=== PATIENT | female | born 1995 | race Caucasian/White ===

== ENCOUNTER → 2022-11-14 17:21 | Outpatient (BNVA) | payer OTHER, MEDICAID, SELFPAY | PROVIDERS: Family Provider Pediatrics; Visit Provider Nurse Practitioner Family | DX: Z12.4 Encounter for screening for malignant neoplasm of cervix (principal) | CPT/HCPCS: 88175 ==

== ENCOUNTER → 2022-12-14 14:44 | Outpatient (BNVA) | payer OTHER, MEDICAID, SELFPAY | PROVIDERS: Family Provider Pediatrics; Visit Provider Nurse Practitioner Family | DX: N92.6 Irregular menstruation, unspecified (principal); N63.10 Unspecified lump in the right breast, unspecified quadrant | CPT/HCPCS: 81025 ==

== ENCOUNTER 2022-12-26 09:38 | Outpatient (CLI) | payer OTHER, MEDICAID, SELFPAY ==
--- NOTE | 2022-12-26 09:48 | US_ITS ---
WS: [id number] Right breast ultrasound, 12/26/2022 Clinical Data: LUMP IN RT BREAST Comparison: None. Findings: The right breast was examined in the upper outer quadrant. Only normal breast tissue could be seen. T here were no cysts or masses. US/US breast RT limited* [id number] Impression: Negative right breast ultrasound Recommend clinical follow-up BIRADS: 1-Negative FOLLOW UP: See Report
== END 2022-12-26 09:39 | disposition home or self-care (01) ==
LOC: RAD 09:42
PROVIDERS: Family Provider Pediatrics; Visit Provider Nurse Practitioner Family
DX: N63.10 Unspecified lump in the right breast, unspecified quadrant (principal)
CPT/HCPCS: 76642

== ENCOUNTER → 2023-02-16 16:08 | Outpatient (BNVA) | payer OTHER, MEDICAID, SELFPAY | PROVIDERS: Family Provider Pediatrics; PCP Nurse Practitioner Family; Visit Provider Nurse Practitioner Family | DX: Z02.83 Encounter for blood-alcohol and blood-drug test (principal) | CPT/HCPCS: 80307 ==

== ENCOUNTER → 2023-05-10 15:39 | Outpatient (BNVA) | payer MEDICAID, SELFPAY | PROVIDERS: Family Provider Pediatrics; PCP Nurse Practitioner Family; Visit Provider Nurse Practitioner Family | DX: Z02.83 Encounter for blood-alcohol and blood-drug test (principal); F41.8 Other specified anxiety disorders; N92.6 Irregular menstruation, unspecified | CPT/HCPCS: 80307 ==

== ENCOUNTER → 2023-05-31 15:20 | Outpatient (BNVA) | payer MEDICAID, SELFPAY | PROVIDERS: Family Provider Pediatrics; PCP Nurse Practitioner Family; Visit Provider Nurse Practitioner Family | DX: N92.6 Irregular menstruation, unspecified (principal); Z02.83 Encounter for blood-alcohol and blood-drug test | CPT/HCPCS: 80307; 81025; 84702 ==

== ENCOUNTER → 2023-06-05 15:03 | Outpatient (BNVA) | payer MEDICAID, SELFPAY | PROVIDERS: Family Provider Pediatrics; PCP Nurse Practitioner Family; Visit Provider Nurse Practitioner Family | DX: Z02.83 Encounter for blood-alcohol and blood-drug test (principal) | CPT/HCPCS: 80307 ==

== ENCOUNTER → 2023-06-29 10:42 | Outpatient (BNVA) | payer MEDICAID, SELFPAY | PROVIDERS: Family Provider Pediatrics; PCP Nurse Practitioner Family; Visit Provider Nurse Practitioner Family | DX: Z02.83 Encounter for blood-alcohol and blood-drug test (principal) | CPT/HCPCS: 80307 ==

== ENCOUNTER → 2023-11-21 08:10 | Outpatient (BNVA) | payer MEDICAID, SELFPAY | PROVIDERS: Family Provider Pediatrics; PCP Nurse Practitioner Family; Visit Provider Nurse Practitioner Women's Health | DX: Z34.90 Encounter for supervision of normal pregnancy, unspecified, unspecified trimester (principal) | CPT/HCPCS: 80307; 84315; 84439; 84443; 84481; 84702; 85025; 86592; 86762; 86803; 86850; 86900; 87086; 87340; 87491; 87591; 87806 ==

== ENCOUNTER → 2023-11-27 10:10 | Outpatient (BNVA) | payer MEDICAID, SELFPAY | PROVIDERS: Family Provider Pediatrics; PCP Nurse Practitioner Family; Visit Provider Obstetrics & Gynecology | DX: Z34.90 Encounter for supervision of normal pregnancy, unspecified, unspecified trimester (principal) | CPT/HCPCS: 76815 ==

== ENCOUNTER → 2023-12-05 08:07 | Outpatient (BNVA) | payer MEDICAID, SELFPAY | PROVIDERS: Family Provider Pediatrics; PCP Nurse Practitioner Family; Visit Provider Obstetrics & Gynecology | DX: Z3A.12 12 weeks gestation of pregnancy (principal) | CPT/HCPCS: 84315; 87491; 87591 ==

== ENCOUNTER → 2023-12-20 08:17 | Outpatient (BNVA) | payer MEDICAID, SELFPAY | PROVIDERS: Family Provider Pediatrics; PCP Nurse Practitioner Family; Visit Provider Nurse Practitioner Women's Health | DX: Z34.90 Encounter for supervision of normal pregnancy, unspecified, unspecified trimester | CPT/HCPCS: 82105; 84315; 87491; 87591 ==

== ENCOUNTER → 2024-01-18 09:10 | Outpatient (BNVA) | payer MEDICAID, SELFPAY | PROVIDERS: Family Provider Pediatrics; PCP Nurse Practitioner Family; Visit Provider Obstetrics & Gynecology | DX: Z34.92 Encounter for supervision of normal pregnancy, unspecified, second trimester (principal) | CPT/HCPCS: 76805 ==

== ENCOUNTER → 2024-02-20 12:39 | Outpatient (BNVA) | payer MEDICAID, SELFPAY | PROVIDERS: Family Provider Pediatrics; PCP Nurse Practitioner Family; Visit Provider Obstetrics & Gynecology | DX: Z34.82 Encounter for supervision of other normal pregnancy, second trimester (principal) | CPT/HCPCS: 76816 ==

== ENCOUNTER → 2024-03-05 08:05 | Outpatient (BNVA) | payer MEDICAID, SELFPAY | PROVIDERS: Family Provider Pediatrics; PCP Nurse Practitioner Family; Visit Provider Nurse Practitioner Women's Health | DX: Z34.90 Encounter for supervision of normal pregnancy, unspecified, unspecified trimester (principal); R82.90 Unspecified abnormal findings in urine | CPT/HCPCS: 82950; 84315; 85025; 87086; 87491; 87591 ==

== ENCOUNTER → 2024-05-07 08:12 | Outpatient (BNVA) | payer MEDICAID, SELFPAY | PROVIDERS: Family Provider Pediatrics; PCP Nurse Practitioner Family; Visit Provider Obstetrics & Gynecology | DX: Z34.90 Encounter for supervision of normal pregnancy, unspecified, unspecified trimester (principal) | CPT/HCPCS: 84315; 87081 ==

== ENCOUNTER 2024-05-22 11:44 | Outpatient (CLI) | payer MEDICAID, SELFPAY ==
[2024-05-22 11:57] VITALS: BP 109/78; PULSE 93
[2024-05-22 12:15] VITALS: BMI 30.3
== END 2024-05-22 12:37 | disposition home or self-care (01) ==
LOC: OPOB 11:50 → OBGYN 11:50
PROVIDERS: Family Provider Pediatrics; PCP Nurse Practitioner Family; Visit Provider Obstetrics & Gynecology
DX: O36.8190 Decreased fetal movements, unspecified trimester, not applicable or unspecified (principal); Z3A.00 Weeks of gestation of pregnancy not specified
CPT/HCPCS: 59025; 84315; 99211

== ENCOUNTER 2024-05-31 02:05 | Inpatient (IN) | payer MEDICAID, SELFPAY ==
[2024-05-30] VITALS (8 sets, daily range): BP systolic 99–126; BP diastolic 58–75; PULSE 68–85; TEMP 36; BMI 30.2
[2024-05-30 23:17] LABS: Basophils % 0.2 %; Eosinophils % 0.3 %; Hematocrit 30.8 % (36-47); Lymphocytes # 1.9 10^3/uL (0.8-4.8); Lymphocytes % 22.3 %; Mean Corpuscular HGB Conc 35.1 g/dL (30-55); Mean Corpuscular Hemoglobin 32.4 pg (27-33); Mean Corpuscular Volume 92.5 fl (85-98); Mean Platelet Volume 11.2 fL (7.4-10.4); Monocytes # 0.5 10^3/uL (0.2-0.9); Monocytes % 5.2 %; Neutrophils # 6.21 10^3/uL (1.8-7.7); Neutrophils % 71.7 %; Nucleated Red Blood Cells % 0 %; Platelet Count 241 10^3/cmm (157-399); Red Blood Count 3.33 10^6/uL (3.85-5.65); Red Cell Distribution Width 13.1 % (12.1-15.1); White Blood Count 8.67 10^3/uL (3.29-11.43)
[2024-05-30] MEDS: dextrose 5%-lactated ringers 1,000 ML 125 ML IV (23:46)
[2024-05-31] VITALS (53 sets, daily range): BP systolic 85–168; BP diastolic 48–93; PULSE 54–83; RESP 16; TEMP 36.5–36.7; O2SAT 86–100
[2024-05-31] MEDS: oxytocin 30 UNIT/500 ML BAG IV (00:29)
[2024-05-31] MEDS: acetaminophen 325 mg Tablet 650 MG PO (00:35)
[2024-05-31] MEDS: lactated ringers 1,000 ML 999 ML IV ×2 (01:02→03:05)
--- NOTE | 2024-05-31 02:10 | PM.OBGYHP ---
Providers/Chief Complaint Admitting Physician: Leonard Peters MD Primary BEHAVIORAL HEALTH TECHNICIAN: Leonard Peters MD Primary Care Provider: Adrianna Dodson NP Chief Complaint: IOL HPI BEHAVIORAL HEALTH TECHNICIAN History of Present Illness Alysha Reddy is a 28 year old female SA5 EDC June 02, 2024 At 39 w 4 d No complications Admitted for elective induction of labor Patient lives more than 2 hours ago and requested induction for fear of delivering outside of hospital No c/o + movements h/o x two Present Details : 8 Para: 2 Labs Rubella: Immune RPR: Negative GBS: Negative Medications/Allergies Home Medications Medication Instructions Recorded Confirmed Last Taken Type prenat.vits,mani,zvj-knka-ronsv 1 tab PO DAILY 12/14/22 05/30/24 1 Day Ago History ~05/29/24 sertraline 50 mg tablet See Rx Instructions .Route 02/20/24 05/30/24 1 Day Ago Rx .COMPLEX #30 tabs ~05/29/24 metoclopramide HCl 5 mg tablet 5 mg PO PRN 05/30/24 05/30/24 1 Month Ago History (Reglan) ~04/29/24 Allergies Allergy/AdvReac Type Severity Reaction Status Date / Time No Known Allergies Allergy Verified 05/28/24 10:05 PFSH BEHAVIORAL HEALTH TECHNICIAN PFSH: Family History Other Cancer Diabetes Hyperlipidemia Hypertension Social History Smoking and tobacco/nicotine status: current every day tobacco/nicotine user Alcohol intake: never Personal Safety: Do you feel safe at home: Yes Victim of physical abuse: No Victim of emotional abuse: No Victim of sexual abuse: No Would you like help information on resources?: No History History History 8 Term 2 0 Miscarriages/Ectopic 5 Living Children 2 Care DELICIA Calculator Estimated Delivery Date Method Current WG Current Estimate 06/02/24 LMP (Certain) 39w 5d Specific Issues/Plans SUPERVISION OF NAUSEA AND VOMITING DURING (resolved, has reglan on hand) ANXIETY AND DEPRESSION --taking zoloft daily ENCOUNTER FOR TUBAL LIGATION CONSULTATION Vitals/I&O/Wt Last Vital Signs Temp 96.8 F L 05/30/24 23:37 Pulse 68 05/31/24 07:36 BP 125/77 05/31/24 07:36 Pulse Ox 100 05/31/24 04:30 O2 Del Method Room Air 05/30/24 22:40 05/30/24 05/31/24 05/31/24 22:59 06:59 14:59 Intake Total 1184.767 / 1184.767 Balance 1184.767 / 1184.767 Weight last 48 hrs Weight 187 lb Physical Exam Narrative: Weight 188 lbs; 5?6? VS normal General comfortable, awake, alert Lungs: clear Cor: RRR FH 36 cm, cephalic Cervix: 2 cm / 50% / -2 / posterior Ext: no edema External monitor: heart tracing good variability, + accelerations Urinary Catheter Management: Joyner Latex Free: Cath Placed During This Visit: yes, but has since been removed by the nurse Reason for Continuing Indwelling Catheter: Decision to DC Catheter Urinary Catheter Date of Insertion: 05/31/24 Urinary Catheter Time of Insertion: 05:03 Date Urinary Catheter Removed: 05/31/24 Time Urinary Catheter Discontinued: 06:10 Data 05/30/24 22:52 Results Labs OB ([facility]): Obstetrics US 02/20/24 Blood Type O Positive 05/30/24 Antibody Screen Negative 05/30/24 Hct 30.8 % (36-47) L 05/30/24 Hgb 10.80 g/dL (11.27-16.99) L 05/30/24 Rho(D) Type Rh positive 05/30/24 Plt Count 241 10^3/cmm (157-399) 05/30/24 Hep Bs Antigen Non-reactive (Nonreactive) 11/21/23 Hepatitis C Antibody Non-reactive (Nonreactive) 11/21/23 Rubella IgG Antibody 141.5 IU/mL (0.0-10.0) H 11/21/23 RPR Nonreactive (Nonreactive) 11/21/23 HIV 1&2 Ab & HIV 1 Ag Non-reactive (Non-Reactiv) 11/21/23 TSH 0.75 uIU/mL (0.27-4.20) 11/21/23 Free T4 1.06 ng/dL (0.82-1.77) 11/21/23 C.trachomatis RNA (TMA) Not detected (NOT DETECTED) 03/05/24 N.gonorrhoeae RNA (TMA) Not detected (NOT DETECTED) 03/05/24 T. vaginalis Amp RNA Not detected (NOT DETECTED) 03/05/24 Chlamydia/GC Comment See note 03/05/24 Glucose 1 Hr 50 gm 83 mg/dL (85-140) L 03/05/24 Ser , Semi-Qnt 08599.00 mIU/mL 11/21/23 HCG, Qual Negative (Negative) 05/31/23 Urine Opiates Screen Negative ng/mL (Negative) 05/31/24 Ur Barbiturates Screen Negative ng/mL (Negative) 05/31/24 Ur Phencyclidine Scrn Negative ng/mL (Negative) 05/31/24 Ur Amphetamines Screen Negative ng/mL (Negative) 05/31/24 U Benzodiazepines Scrn Negative ng/mL (Negative) 05/31/24 Urine Cocaine Screen Negative ng/mL (Negative) 05/31/24 U Marijuana (THC) Screen Positive ng/mL (Negative) H 05/31/24 Micro Urine Specimen 03/05/24 Pap Smear Interpret See note 11/14/22 A&P Assessment and plan (1) : 39 w 4 d Admit for elective induction of labor Fetus reassuring Plan start Pitocin per protocol h/o x two Rh + Qualifiers: Weeks of gestation: 12 weeks Qualified Code(s): Z3A.12 - 12 weeks gestation of Attestations Medical Necessity Statement*: patient at 39 w 4 d, admitted for induction of labor Coding Level of Care Code Acute Code for Chg Fwd Diagnoses 12 weeks gestation of Z3A.12 Weeks of gestation: 12 weeks Time Spent (min) 30
[2024-05-31 03:14] LABS: Amphetamines Screen Urine Negative (Negative); Barbiturates Screen Urine Negative (Negative); Benzodiazepines Screen Urine Negative (Negative); Cocaine Screen Urine Negative (Negative); Opiate Screen Urine Negative (Negative); PCP Screen Urine Negative (Negative); THC Screen Urine Positive (Negative)
--- NOTE | 2024-05-31 03:44 | P.ANESASSM_ITS ---
Pre-Anesthetic Assessment Height/Weight: Height 1.68 m Weight 84.822 kg Temp Pulse BP Pulse Ox O2 Del Method 96.8 F L 80 139/67 86 L Room Air 05/30/24 23:37 05/31/24 03:53 05/31/24 03:51 05/31/24 03:53 05/30/24 22:40 Preop Diagnosis: labor pain epidural Familial anesthetic complications: none Was Beta Remy taken within 24 hours: N/A Was Clonidine taken within 24 hours: N/A Social Tobacco (.5-1 ppd) and No alcohol Exam alert and oriented x 3 Airway Submandibular: within normal limits Cervical ROM: within normal limits Mallampati: Class II Dentition: other (poor dentition, multiple rotten and broken) History/ROS No significant history except as noted Pulmonary Asthma Anesthetic Plan ASA status: 2 Anesthesia: Anesthesia Evaluation, General and Regional (specify below) Medications/Allergies Home Medications Medication Instructions Recorded Confirmed Last Taken Type prenat.vits,mani,vyw-zeur-xsdud 1 tab PO DAILY 12/14/22 05/30/24 1 Day Ago History ~05/29/24 sertraline 50 mg tablet See Rx Instructions .Route 02/20/24 05/30/24 1 Day Ago Rx .COMPLEX #30 tabs ~05/29/24 metoclopramide HCl 5 mg tablet 5 mg PO PRN 05/30/24 05/30/24 1 Month Ago History (Reglan) ~04/29/24 Allergies Allergy/AdvReac Type Severity Reaction Status Date / Time No Known Allergies Allergy Verified 05/28/24 10:05 Current Medications Generic Name Dose Route Start Last Admin Trade Name Debbie PRN Reason Stop Dose Admin Acetaminophen 650 mg 05/30/24 21:57 05/31/24 00:35 Acetaminophen 325 Mg Tablet PO 650 mg Q6H PRN Administration Mild pain or temp > 100.4 Lactated Ringer's 1,000 mls @ 999 mls/hr 05/30/24 21:57 05/31/24 02:05 Lactated Ringers IV Infused .Q1H1M PRN Infusion Per L&D Rescitation Protocol Dextrose/Lactated Ringer's 1,000 mls @ 125 mls/hr 05/30/24 22:00 05/31/24 02:05 Dextrose 5%-Lactated Ringers IV 125 mls/hr .Q8H MARSHA Infusion Oxytocin 30 unit in 500 mls @ 1 mls/hr 05/30/24 22:45 05/31/24 02:36 Pitocin IV 3 milliunit/min .Q24H MARSHA 3 mls/hr Titration Protocol 1 MILLIUNIT/MIN Lactated Ringer's 1,000 mls @ 999 mls/hr 05/31/24 02:54 05/31/24 03:05 Lactated Ringers IV 999 mls/hr .Q1H1M PRN Administration See label comments PFSH Anesthesia Family History Other Cancer Diabetes Hyperlipidemia Hypertension Social History Smoking and tobacco/nicotine status: current every day tobacco/nicotine user Alcohol intake: never Female Reproductive History : 8 Data Anesthesia 05/30/24 22:52 Short CBC 05/30/24 Range/Units 22:52 WBC 8.67 (3.29-11.43) 10^3/uL Hgb 10.80 L (11.27-16.99) g/dL Hct 30.8 L (36-47) % MCV 92.5 (85-98) fl Plt Count 241 (157-399) 10^3/cmm Neut % (Auto) 71.7 % Neut # (Auto) 6.21 (1.8-7.7) 10^3/uL Blood Bank 05/30/24 22:52 Blood Type O Positive Rho(D) Type Rh positive Antibody Screen Negative Cardiac Studies: 2 No Data to Display
[2024-05-31] MEDS: ROPivacaine syringe 100 MG/50 ML SYRINGE 10 MG EPIDURAL (03:54)
--- NOTE | 2024-05-31 03:54 | ANES.PROC ---
Anesthesia Procedures Procedure/Date: 05/31/24 Epidural: Time Out Performed: Yes Consents Signed: Procedure Consent Consent: from patient, risks and benefits reviewed and patient agrees to proceed Lumbar Level: L3-L4 Epidural position: sitting Epidural procedure: sterile prep of area, 1% lidocaine to numb the area, 18 g needle, negative for paresthesia passed, neg for paresthesia, test dose given, 1.5% xylocaine 1:200k epi, placed PCEA, no systemic response, sterile dressing applied, L.U.D. no apparent complications and 0.2% Ropiavacaine @ mls/hr (13) Additional Comments: RICKY at 5, negative aspiration. taped at 12 at skin.
--- NOTE | 2024-05-31 06:20 | PM.DELIVERY ---
Delivery Note: Date of delivery: May 31, 2024 Pre-delivery diagnoses: 39 w 4 d admitted for elective induction of labor Post-delivery diagnoses: 39 w 4 d admitted for elective induction of labor vaginal delivery Procedure: induction of labor vaginal delivery Op report anesthesia: None Delivering Physician: Leonard Peters MD Estimated blood loss (mL): 300 Findings: , vigorous male Cord gases and blood obtained Normal placenta and cord Cord with true knot No episiotomy / lacerations EBL: 300 cc Pre-Delivery Course: normal labor course Delivery: vaginal Post-Delivery Status: good History History History 8 Term 2 0 Miscarriages/Ectopic 5 Living Children 2 A&P Assessment and plan (1) Vaginal delivery: Coding Level of Care Code Acute Code for Chg Fwd Diagnoses Vaginal delivery O80 Time Spent (min) 60
[2024-05-31] MEDS: ibuprofen 800 mg tablet PO ×3 (10:17→20:15)
[2024-05-31] MEDS: lanolin oint 7 gm 1 APPLIC TOPICAL (10:17)
[2024-05-31] MEDS: benzocaine-menthol 78 gm Canister 1 SPRAY TOPICAL (10:17)
--- NOTE | 2024-05-31 12:00 | ANE.PACU2 ---
Inpatient post-anesthesia follow up: Airway intact: Yes Vital signs: Temperature 98.2 F Pulse Rate 74 Respiratory Rate 16 Blood Pressure 118/70 Pulse Oximetry 98 Oxygen Delivery Me thod Room Air Oxygen Flow Rate Fraction of Inspir ed Oxygen Hydration adequate: Yes Nausea and vomiting: No Pain level: 1 Mental status: Baseline Epidural Start/End: Epidural Start Date: 05/31/24 Epidural Start Time: 03:44 Epidural End Date: 05/31/24 Epidural End Time: 05:36
[2024-05-31] MEDS: docusate sodium 100 mg Capsule PO (19:13)
[2024-05-31 19:22] LABS: Hematocrit 29.9 % (36-47); Mean Corpuscular HGB Conc 33.8 g/dL (30-55); Mean Corpuscular Hemoglobin 31.9 pg (27-33); Mean Corpuscular Volume 94.3 fl (85-98); Mean Platelet Volume 11.6 fL (7.4-10.4); Platelet Count 210 10^3/cmm (157-399); Red Blood Count 3.17 10^6/uL (3.85-5.65); White Blood Count 9.55 10^3/uL (3.29-11.43)
[2024-06-01 04:45] VITALS: BP 113/57; PULSE 77; RESP 15; TEMP 36.5; O2SAT 98
--- NOTE | 2024-06-01 08:36 | PM.OBGYDC ---
Discharge Providers [employer] Date of Admission: 05/31/24 02:05 Date of Discharge: 06/01/24 Attending Provider at Admission: Leonard Peters MD Attending Provider at Discharge: Leonard Peters MD Primary Care Provider: Adrianna Dodson NP Diagnoses at Discharge Discharge Diagnosis (1) Vaginal delivery: Details from hospital stay: 28-year-old female G8, P3 delivered at 39.3 weeks gestation via of viable male . Patient is ambulating, tolerating a regular diet, voiding and caring for infant without nursing assistance. Patient denies headaches, blurred vision, chest pain or shortness of breath. Her pain has been relieved with ibuprofen. She denies any heavy bleeding or passage of clots. Patient's past medical history was reviewed including her depression, she states she has not recently had to take her medication she has been feeling very well. Discharge discussed with the patient to home with expectations and restrictions. Encourage no heavy lifting pushing pulling no sex douching or tampons x 6 weeks. Patient understands and states she is to see Dr. Peters in a few weeks for she desires future sterilization. She does not desire to proceed with tubal sterilization at this time. I discussed with patient to continue her vitamins that she has at home and to restart her depression medicine sertraline as prescribed. Status: Acute Reason for Visit Reason for Visit: IOL Hospital Course Hospital Course See above Information Peripartum Data: Infant Delivery Method: Vaginal Laceration description: None Physical Exam Narrative: 28-year-old female awake and alert and oriented. HENMT: COMMON NORMALS: normocephalic HEAD & SCALP: normocephalic Cardio: COMMON NORMALS: regular rate and regular rhythm RATE: regular rate RHYTHM: regular rhythm Back/Pelvis: OTHER: Abdomen?soft, fundus firm well below umbilicus. Lochia?light Extremity: COMMON NORMALS: no clubbing, cyanosis or edema Urinary Catheter Management: Joyner Latex Free: Cath Placed During This Visit: yes, but has since been removed by the nurse Reason for Continuing Indwelling Catheter: Decision to DC Catheter Urinary Catheter Date of Insertion: 05/31/24 Urinary Catheter Time of Insertion: 05:03 Date Urinary Catheter Removed: 05/31/24 Time Urinary Catheter Discontinued: 06:10 History History History 8 Term 2 0 Miscarriages/Ectopic 5 Living Children 2 Discharge Data Studies Completed and Pending Laboratory Results WBC 9.55 10^3/uL (3.29-11.43) 05/31/24 18:50 RBC 3.17 10^6/uL (3.85-5.65) L 05/31/24 18:50 Hgb 10.10 g/dL (11.27-16.99) L 05/31/24 18:50 Hct 29.9 % (36-47) L 05/31/24 18:50 MCV 94.3 fl (85-98) 05/31/24 18:50 MCH 31.9 pg (27-33) 05/31/24 18:50 MCHC 33.8 g/dL (30-55) 05/31/24 18:50 RDW 13.0 % (12.1-15.1) 05/31/24 18:50 Plt Count 210 10^3/cmm (157-399) 05/31/24 18:50 MPV 11.6 fL (7.4-10.4) H 05/31/24 18:50 Neut % (Auto) 71.7 % 05/30/24 22:52 Lymph % (Auto) 22.3 % 05/30/24 22:52 [place] % (Auto) 5.2 % 05/30/24 22:52 Eos % (Auto) 0.3 % 05/30/24 22:52 Baso % (Auto) 0.2 % 05/30/24 22:52 Neut # (Auto) 6.21 10^3/uL (1.8-7.7) 05/30/24 22:52 Lymph # (Auto) 1.9 10^3/uL (0.8-4.8) 05/30/24 22:52 [place] # (Auto) 0.5 10^3/uL (0.2-0.9) 05/30/24 22:52 Eos # (Auto) 0.0 10^3/uL (0.0-0.8) 05/30/24 22:52 Baso # (Auto) 0.0 10^3/uL (0.0-0.1) 05/30/24 22:52 Nucleated RBC % (auto) 0 % 05/30/24 22:52 Nucleated RBCs # 0.0 /100WBC 05/30/24 22:52 Urine Opiates Screen Negative ng/mL (Negative) 05/31/24 02:58 Ur Barbiturates Screen Negative ng/mL (Negative) 05/31/24 02:58 Ur Phencyclidine Scrn Negative ng/mL (Negative) 05/31/24 02:58 Ur Amphetamines Screen Negative ng/mL (Negative) 05/31/24 02:58 U Benzodiazepines Scrn Negative ng/mL (Negative) 05/31/24 02:58 Urine Cocaine Screen Negative ng/mL (Negative) 05/31/24 02:58 U Marijuana (THC) Screen Positive ng/mL (Negative) H 05/31/24 02:58 Blood Type O Positive 05/30/24 22:52 Rho(D) Type Rh positive 05/30/24 22:52 Antibody Screen Negative 05/30/24 22:52 Vitals Last Vital Signs Temp 97.7 F 06/01/24 04:45 Pulse 77 06/01/24 04:45 Resp 15 06/01/24 04:45 BP 113/57 06/01/24 04:45 Pulse Ox 98 06/01/24 04:45 O2 Del Method Room Air 06/01/24 04:45 Results Labs OB ([facility]): Obstetrics US 02/20/24 Blood Type O Positive 05/30/24 Antibody Screen Negative 05/30/24 Hct 29.9 % (36-47) L 05/31/24 Hgb 10.10 g/dL (11.27-16.99) L 05/31/24 Rho(D) Type Rh positive 05/30/24 Plt Count 210 10^3/cmm (157-399) 05/31/24 Hep Bs Antigen Non-reactive (Nonreactive) 11/21/23 Hepatitis C Antibody Non-reactive (Nonreactive) 11/21/23 Rubella IgG Antibody 141.5 IU/mL (0.0-10.0) H 11/21/23 RPR Nonreactive (Nonreactive) 11/21/23 HIV 1&2 Ab & HIV 1 Ag Non-reactive (Non-Reactiv) 11/21/23 TSH 0.75 uIU/mL (0.27-4.20) 11/21/23 Free T4 1.06 ng/dL (0.82-1.77) 11/21/23 C.trachomatis RNA (TMA) Not detected (NOT DETECTED) 03/05/24 N.gonorrhoeae RNA (TMA) Not detected (NOT DETECTED) 03/05/24 T. vaginalis Amp RNA Not detected (NOT DETECTED) 03/05/24 Chlamydia/GC Comment See note 03/05/24 Glucose 1 Hr 50 gm 83 mg/dL (85-140) L 03/05/24 Ser , Semi-Qnt 22965.00 mIU/mL 11/21/23 HCG, Qual Negative (Negative) 05/31/23 Urine Opiates Screen Negative ng/mL (Negative) 05/31/24 Ur Barbiturates Screen Negative ng/mL (Negative) 05/31/24 Ur Phencyclidine Scrn Negative ng/mL (Negative) 05/31/24 Ur Amphetamines Screen Negative ng/mL (Negative) 05/31/24 U Benzodiazepines Scrn Negative ng/mL (Negative) 05/31/24 Urine Cocaine Screen Negative ng/mL (Negative) 05/31/24 U Marijuana (THC) Screen Positive ng/mL (Negative) H 05/31/24 Micro Urine Specimen 03/05/24 Pap Smear Interpret See note 11/14/22 Discharge Plan Discharge Patient Disposition: Home Condition: Stable Prescriptions: Continued prenat.vits,mani,bmf-eftr-aemgi Tablet 1 tab PO DAILY sertraline 50 mg tablet See Rx Instructions .ROUTE .COMPLEX Qty: 30 5RF Dose Instruction: TAKE ONE TABLET BY MOUTH ONCE DAILY Rx Instructions: TAKE ONE TABLET BY MOUTH ONCE DAILY Reglan 5 mg tablet 5 mg PO PRN Discharge Orders: Discharge Order (Routine); Ordered 06/01/24 Ordered By: Yasemin Vera Discharge Diet: Regular Discharge Activity: Increase activity as tolerated and Limit activity as instructed Patient Instructions: Depression (DC), Bleeding (DC), Preeclampsia and Eclampsia After Delivery (GEN), Hemorrhage (DC), OB Discharge Report, OB Food/Drug Interaction Guide, Opioid Safety, OB Home Care, OB Proud Parent Packet, OB [facility]aginal Deliveries - [facility] Activity Restrictions/Additional Instructions: No heavy lifting pushing pulling no sexual intercourse x 6 weeks. Patient to continue her vitamins and sertraline that she has at home. Assessment: 1. S/p viable male 2. Desires future sterilization Plan of Treatment: 1. Discharge patient to home 2. Follow-up with Dr. Peters in 4 weeks for scheduling of tubal sterilization. Discharge Attestations [employer] Time Spent in Discharge Care*: less than 30 min Coding Level of Care Code Acute Code for Chg Fwd Diagnoses Vaginal delivery O80
[2024-06-01] MEDS: ibuprofen 800 mg tablet PO (08:37)
[2024-06-01] MEDS: PRENATAL VIT NO.130/IRON/FOLIC 1 EACH TABLET PO (08:37)
[2024-06-01] MEDS: docusate sodium 100 mg Capsule PO (08:37)
[2024-06-01 10:13] VITALS: BP 124/80; PULSE 64; RESP 16; TEMP 36.5
[2024-06-01 14:00] VITALS: BP 118/70; PULSE 74; RESP 16; TEMP 36.8
== END 2024-06-01 13:40 | disposition home or self-care (01) | DRG 807 ==
LOC: OPOB 02:05 → OBGYN 02:05
PROVIDERS: Admitting Provider Obstetrics & Gynecology; PCP Nurse Practitioner Family; Visit Provider Obstetrics & Gynecology
DX: O99.334 Smoking (tobacco) complicating childbirth (principal); Z37.0 Single live birth; F17.210 Nicotine dependence, cigarettes, uncomplicated; Z3A.39 39 weeks gestation of pregnancy; O99.344 Other mental disorders complicating childbirth; F41.9 Anxiety disorder, unspecified; F32.A Depression, unspecified; O69.2XX0 Labor and delivery complicated by other cord entanglement, with compression, not applicable or unspecified
CPT/HCPCS: 36415; 51702; 59409; 80306; 85025; 85027; 86850; 86900; J2590; J2795; J7120; J7121

== ENCOUNTER 2024-09-12 11:11 | Day surgery (SDC) | payer MEDICAID, SELFPAY ==
[2024-09-12] VITALS (11 sets, daily range): BP systolic 105–150; BP diastolic 62–84; PULSE 58–97; RESP 16–18; TEMP 36.6–37.2; O2SAT 98–100; BMI 27.9
--- NOTE | 2024-09-12 03:38 | W.PM.OPSFHP ---
Same Day Surgery H&P Indication for Procedure/HPI DATE OF PROCEDURE: September 12, 2024 CHIEF COMPLAINT/INDICATIONFOR SURGICAL PROCEDURE: desires permanent sterilization PREOP DIAGNOSIS: desires permanent sterilization PLANNED PROCEDURE: Operation Date: 09/12/24 12:25 Proposed Procedures p Laparoscopic bilateral partial salpingectomy 42957,Z30.2(Bilateral) - Leonard Peters MD 28 y.o. SA5 desires permanent sterilization Medications/Allergies* Home Medications Medication Instructions Recorded Confirmed Type prenat.vits,mani,lnb-fmle-arzgq 1 tab PO DAILY 12/14/22 09/11/24 History Allergies/Adverse Reactions Allergy/AdvReac Type Severity Reaction Status Date / Time No Known Allergies Allergy Verified 09/11/24 11:24 Pertinent History/Comorbid Conditions* Family History (Updated 12/14/22 @ 14:15 by Randa Menjivar LPN) Diabetes Hyperlipidemia Cancer Hypertension Social History Smoking and tobacco/nicotine status: current every day tobacco/nicotine user Pertinent Exam Findings alert, oriented x 3, clear to auscultation bilaterally and regular rate & rhythm Recommendations Surgery/Procedure today Coding Level of Care Code Acute Code for Chg Fwd Time Spent (min) 20
[2024-09-12 11:31] LABS: OR HCG Qualitative Urine Negative (Negative)
[2024-09-12] MEDS: sodium chloride 0.9% 1,000 ML 30 ML IV (11:33)
--- NOTE | 2024-09-12 11:46 | ANES.PREANE2 ---
Pre-Anesthetic Assessment Height/Weight: Height 5 ft 6 in Weight 173 lb Temp Pulse Resp BP Pulse Ox O2 Del Method 98.1 F 66 18 150/79 100 Room Air 09/12/24 11:28 09/12/24 11:28 09/12/24 11:28 09/12/24 11:28 09/12/24 11:28 09/12/24 11:30 Preop Diagnosis: desires permanent sterilization Operation Date: 09/12/24 12:25 Proposed Procedures p Laparoscopic bilateral partial salpingectomy 67149,Z30.2(Bilateral) - Leonard Peters MD Was Beta Remy taken within 24 hours: N/A Was Clonidine taken within 24 hours: N/A Last intake: Intake Last Liquid Date 09/12/24 Last Liquid Time 23:00 Last Solid Date 09/11/24 Last Solid Time 23:00 Social No alcohol and No tobacco Exam alert, oriented x 3, clear to auscultation bilaterally and regular rate & rhythm Airway Submandibular: within normal limits Cervical ROM: within normal limits Mallampati: Class II Dentition: other (Extremely poor dentition, most teeth are black. Multiple missing. Denies any loose teeth) Anesthetic Plan ASA status: 2 Anesthesia: General Other: No prior issues with anesthesia NPO since yesterday Current smoker Very poor dentition Denies any cardiac issues METs greater than 4 Plan for general anesthesia Medications/Allergies Home Medications Medication Instructions Recorded Confirmed Last Taken Type prenat.vits,mani,jke-agzw-bchjr 1 tab PO DAILY 12/14/22 09/11/24 09/11/24 History sertraline 50 mg tablet See Rx Instructions .Route 02/20/24 09/11/24 09/11/24 Rx .COMPLEX #30 tabs Allergies Allergy/AdvReac Type Severity Reaction Status Date / Time No Known Allergies Allergy Verified 09/12/24 11:36 Current Medications Generic Name Dose Route Start Last Admin Trade Name Freq PRN Reason Stop Dose Admin Sodium Chloride 1,000 mls @ 30 mls/hr 09/12/24 11:15 09/12/24 11:33 Sodium Chloride 0.9% IV 09/13/24 11:14 30 mls/hr .Q24H MARSHA Administration PFSH Anesthesia Family History Other Cancer Diabetes Hyperlipidemia Hypertension Social History (Updated 07/15/24 @ 10:39 by Pat Harp LPN) Smoking and tobacco/nicotine status: current every day tobacco/nicotine user Data Anesthesia Cardiac Studies: No Data to Display
--- NOTE | 2024-09-12 12:45 | W.PM.OPSUD ---
Surgery/Procedure H&P Update DATE OF PROCEDURE: September 12, 2024 DATE H&P PERFORMED: 09/12/24 H&P UPDATE INFORMATION: I have reviewed H&P completed within last 30 days, I have examined patient prior to procedure and No changes to prior documentation PREOP DIAGNOSIS: desires permanent sterilization PLANNED PROCEDURE: Operation Date: 09/12/24 12:25 Proposed Procedures p Laparoscopic bilateral partial salpingectomy 59381,Z30.2(Bilateral) - Leonard Peters MD
[2024-09-12] MEDS: fentaNYL 50 mcg/mL INJ 2mL IVP (14:18)
--- NOTE | 2024-09-12 14:20 | P.OP_ITS ---
Operative Report Date of procedure: September 12, 2024 Pre-op diagnosis: desires permanent sterilization Post-op diagnosis: same Post-op findings: normal uterus, tubes, and ovaries Procedure done: laparoscopic bilateral partial salpingectomy Specimens removed/disposition: bilateral partial fallopian tube segments Surgeon: Leonard Peters MD Anesthesia: General Estimated blood loss (mL): 5 Complications: none Findings: normal uterus, tubes, and ovaries Condition: stable Disposition: PACU Brief History: 29 y.o. desires permanent sterilization Procedure: Informed consent was obtained. The patient was taken to the OR and placed on the table. General endotracheal anesthesia was induced. The abdomen was prepped and draped in the usual fashion. A 5 mm subumbilical skin incision was made. A 5 mm trocar with sheath was then inserted into the peritoneal cavity under direct visualization with the laparoscope. After confirming intraperitoneal position, pneumoperitoneum was achieved. Two separate 5 mm incisions were made in the right and left mid- quadrants. 5 mm trocars with sheaths were then inserted into the peritoneal cavity under direct visualization with the laparoscope. The right fallopian tube was then identified to its fimbrial end. Starting at the fimbrial end, the mesosalpinx was then coagulated and cut using the Ligasure device. A 5 cm portion of the right fallopian tube was excised and removed via one of the ports. This was sent to pathology. There was no bleeding seen. Similarly, the left fallopian tube was identified to its fimbrial end. A 5 cm portion of the left fallopian tube was excised and removed, sent to pathology. There was no bleeding. All instruments were then removed from the peritoneal cavity after the pneumoperitoneum was allowed to escape. The skin incisions were closed using 3- O chromic in subcuticular fashion. Dermabond was applied. The patient was then awakened and taken the the PACU in good condition. Postop condition: stable EBL: 5 cc Complications: none Sponge, needles, and instruments counts correct x two
--- NOTE | 2024-09-12 15:45 | ANE.PACU2 ---
Inpatient post-anesthesia follow up: Airway intact: Yes Vital signs: Temperature 98.1 F Pulse Rate 58 Respiratory Rate 16 Blood Pressure 119/71 Pulse Oximetry 100 Oxygen Delivery Me thod Room Air Oxygen Flow Rate Fraction of Inspir ed Oxygen Hydration adequate: Yes Nausea and vomiting: No Pain level: 1 Mental status: Baseline
== END 2024-09-12 15:45 | disposition home or self-care (01) ==
PROVIDERS: Student in an Organized Health Care Education/Training Program; PCP Nurse Practitioner Family; Visit Provider Obstetrics & Gynecology
PROC: (CPT 58661; principal; 2024-09-12 12:15)
DX: Z30.2 Encounter for sterilization (principal); F17.200 Nicotine dependence, unspecified, uncomplicated
CPT/HCPCS: 58661; 81025; 88302; J0131; J1100; J1885; J2250; J2405; J2704; J3010; J3490; J7030